=== PATIENT | male | born 1940 | race Caucasian/White ===

== ENCOUNTER → 2024-02-14 11:18 | Outpatient (REF) | payer MEDICARE, BC, SELFPAY ==
[2024-02-14 14:20] LABS: PSA, Total - Diagnostic 9.22 ng/ml (0.0-4.0)
== END ==
LOC: REG 11:18
PROVIDERS: ATTENDING PHYSICIAN Specialist; FAMILY PHYSICIAN Family Medicine
DX: C61 Malignant neoplasm of prostate (principal)
CPT/HCPCS: 36415; 84153

== ENCOUNTER → 2024-06-04 11:34 | Outpatient (REF) | payer MEDICARE, BC, SELFPAY ==
[2024-06-04 13:23] LABS: PSA, Total - Diagnostic 0.67 ng/ml (0.0-4.0)
== END ==
LOC: REG 11:34
PROVIDERS: ATTENDING PHYSICIAN Specialist; REFERRING PHYSICIAN Family Medicine
DX: C61 Malignant neoplasm of prostate (principal)
CPT/HCPCS: 36415; 84153

== ENCOUNTER → 2024-11-28 13:20 | Outpatient (REF) | payer MEDICARE, BC, SELFPAY ==
[2024-11-28 15:36] LABS: PSA, Total - Diagnostic 0.27 ng/ml (0.0-4.0)
== END ==
LOC: REG 13:20
PROVIDERS: ATTENDING PHYSICIAN Specialist; FAMILY PHYSICIAN Family Medicine
DX: C61 Malignant neoplasm of prostate (principal)
CPT/HCPCS: 36415; 84153

== ENCOUNTER → 2025-06-03 12:51 | Outpatient (REF) | payer MEDICARE, BC, SELFPAY ==
[2025-06-03 15:22] LABS: PSA, Total - Diagnostic 0.26 ng/ml (0.0-4.0)
== END ==
LOC: REG 12:51
PROVIDERS: ATTENDING PHYSICIAN Specialist; FAMILY PHYSICIAN Family Medicine
DX: C61 Malignant neoplasm of prostate (principal)
CPT/HCPCS: 36415; 84153